=== PATIENT | male | born 1995 | race Caucasian/White ===

== ENCOUNTER 2020-02-02 08:20 | Emergency (ER) | payer OTHER ==
[~2020-02-02] VITALS: Ht 172.7 cm; Wt 82.4 kg
[2020-02-02] MEDS ORDERED: CEPH250T PO (09:09)
[2020-02-02 09:38] VITALS: BP 120/60
== END 2020-02-02 09:42 | disposition home or self-care (01) ==
LOC: ER 08:21
DX: R22.32 Localized swelling, mass and lump, left upper limb (principal); Z79.2 Long term (current) use of antibiotics
CPT/HCPCS: 99283

== ENCOUNTER 2020-02-06 12:32 | Emergency (ER) | payer OTHER ==
[~2020-02-06] VITALS: Ht 172.7 cm; Wt 81.8 kg
[~2020-02-06 12:32] MED LIST: CEPH250T PO
[2020-02-06] MEDS ORDERED: LACT1CAP60 PO (13:06)
[2020-02-06] MEDS ORDERED: DOXY100C43 PO (13:06)
[2020-02-06 13:19] VITALS: BP 126/74
== END 2020-02-06 13:21 | disposition home or self-care (01) ==
LOC: ER 12:33
DX: T50.905A Adverse effect of unspecified drugs, medicaments and biological substances, initial encounter (principal); R19.7 Diarrhea, unspecified; Z79.899 Other long term (current) drug therapy
CPT/HCPCS: 99283

== ENCOUNTER 2020-02-09 08:44 | Emergency (ER) | payer OTHER ==
[~2020-02-09] VITALS: Ht 172.7 cm; Wt 83.6 kg
[~2020-02-09 08:44] MED LIST changes: +DOXY100C43 PO; +LACT1CAP60 PO
[2020-02-09 09:33] VITALS: BP 112/59
== END 2020-02-09 09:37 | disposition home or self-care (01) ==
LOC: ER 08:45
DX: H66.42 Suppurative otitis media, unspecified, left ear (principal); R20.8 Other disturbances of skin sensation; Z79.2 Long term (current) use of antibiotics; Z79.899 Other long term (current) drug therapy
CPT/HCPCS: 99281; 99282

== ENCOUNTER 2021-01-13 08:34 | Emergency (ER) | payer OTHER ==
[~2021-01-13] VITALS: Ht 172.7 cm; Wt 81.8 kg
[~2021-01-13 08:34] MED LIST changes: -CEPH250T PO; -DOXY100C43 PO
[2021-01-13 08:45] VITALS: BP 128/74
[2021-01-13] MEDS ORDERED: PRED20TA PO (09:17)
[2021-01-13] MEDS ORDERED: ALBU18HF2 INH (09:17)
[2021-01-13] MEDS ORDERED: DOXY100C43 PO (09:17)
== END 2021-01-13 09:30 | disposition home or self-care (01) ==
LOC: ER 08:35
DX: J06.9 Acute upper respiratory infection, unspecified (principal); Z79.2 Long term (current) use of antibiotics; Z79.899 Other long term (current) drug therapy
CPT/HCPCS: 99283